=== PATIENT | female | born 1955 | race Caucasian/White ===

== ENCOUNTER → 2016-06-17 | Outpatient (CLI) | payer MEDICARE ==
--- NOTE | 2016-06-23 07:32 | MM ---
Reason for exam: screening (asymptomatic). Last mammogram was performed 7 years and 7 months ago. History: Patient is postmenopausal and history of other cancer. Family history of breast cancer in sister at age 59. Physical Findings: A clinical breast exam by your physician is recommended on an annual basis and results should be correlated with mammographic findings. MG Screening Mammo w CAD Bilateral CC and MLO view(s) were taken. Prior study comparison: November 02, 2008, bilateral digital screening mammogram. July 01, 2005, bilateral screening mammogram w/CAD. There are scattered fibroglandular densities. Finding: There are typically benign round calcifications in both breasts. There is no discrete abnormality. ASSESSMENT: Benign, BI-RAD 2 RECOMMENDATION: Routine screening mammogram of both breasts in 1 year.
== END | disposition home or self-care (01) ==
LOC: MERGE 09:52 → RADMAMWWP 09:52
PROVIDERS: ATTEND Family Medicine
DX: Z12.31 Encounter for screening mammogram for malignant neoplasm of breast (principal)

== ENCOUNTER 2016-07-21 08:09 | Day surgery (SDC) | payer MEDICARE, OTHER ==
[2016-07-16 11:25] VITALS: BMI 24.3
[~2016-07-21 08:09] MED LIST: LACTATED RINGERS 1,000 ML IV SCH; LIDOCAINE 1% 20 ML VIAL (10MG/ML) FOR IV START INTRADERMA PRN
[2016-07-21 08:52] VITALS: TEMP 98.1
[2016-07-21] MEDS ORDERED: LIDOCAINE 1% 20 ML VIAL (10MG/ML) FOR IV START INTRADERMA ONE (08:53)
[2016-07-21] MEDS ORDERED: PROPOFOL 10 MG/ML 20 ML VIAL IV ONE (09:41)
[2016-07-21 10:19] VITALS: RESP 18
--- NOTE | 2016-07-21 10:20 | P.PCN ---
Date of Procedure: 07/21/16 Procedure(s) Performed: Procedure: Total colonoscopy. Preoperative diagnosis: Hemoccult-positive stools. Postoperative diagnosis: Diverticulosis with no evidence of acute diverticulitis , strictures, polyps or cancer. Preparation: HalfLytely prep. Sedation: Was provided by anesthesia. Brief clinical history: The patient is a 60-year-old female who is referred for this evaluation for screening for neoplasia because of finding of Hemoccult positive stools. The patient has no abdominal complaints, overt bleeding or anemia. No family history of colon cancer. This would be her first colonoscopy. Procedure: With the patient on her left lateral decubitus position and after informed consent and adequate sedation, the perianal area was inspected and it did not show any fissures or fistulas. There were no masses felt on digital rectal examination. The Olympus CFQ 160LVideo colonoscope was then inserted in the rectum in the usual fashion and advanced to the cecum. There were multiple diverticular orifices seen scattered in the sigmoid and left side and occasional diverticular orifice seen on the right side with no evidence of acute diverticulitis or strictures. The mucosa appeared healthy. No polyps or tumors were seen. I retroflexed the endoscope in the rectum before the endoscope was withdrawn. The patient tolerated the procedure well. Plan: The patient was reassured. Discussed dietary measures. She will follow- up with you as planned. Consideration can be given for upper GI workup in the future further workup of her Hemoccult positive stools depending on her symptoms , otherwise, in the absence of finding of polyps or family history of colon cancer, I recommended repeat colonoscopy in 10 years.
[2016-07-21 10:38] VITALS: BP 149/67; PULSE 69
== END 2016-07-21 12:22 | disposition home or self-care (01) ==
LOC: ORWHC2ENDO 08:09
DX: K57.30 Diverticulosis of large intestine without perforation or abscess without bleeding (principal); K62.5 Hemorrhage of anus and rectum; F17.200 Nicotine dependence, unspecified, uncomplicated
CPT/HCPCS: 45378; J2704; 99153

== ENCOUNTER → 2018-12-03 | Outpatient (CLI) | payer OTHER ==
--- NOTE | 2018-12-07 10:13 | MM ---
Reason for exam: screening (asymptomatic). Last mammogram was performed 2 years and 6 months ago. History: Patient is postmenopausal and has history of other cancer at age 57. Family history of breast cancer in sister at age 59. Physical Findings: A clinical breast exam by your physician is recommended on an annual basis and results should be correlated with mammographic findings. MG Screening Mammo w CAD Bilateral CC and MLO view(s) were taken. Prior study comparison: June 17, 2016, bilateral MG screening mammo w CAD. November 02, 2008, bilateral digital screening mammogram. The breast tissue is heterogeneously dense. This may lower the sensitivity of mammography. Benign appearing bilateral calcifications. No suspicious abnormality. No significant changes when compared with prior studies. ASSESSMENT: Benign, BI-RAD 2 RECOMMENDATION: Routine screening mammogram of both breasts in 1 year.
== END ==
LOC: RADMAMWWP 07:26
PROVIDERS: ATTEND Family Medicine
DX: Z12.31 Encounter for screening mammogram for malignant neoplasm of breast (principal)
CPT/HCPCS: 77067

== ENCOUNTER 2019-12-19 11:24 | Emergency (ER) | payer MEDICARE ==
[2019-12-19 11:28] VITALS: BP 140/78; PULSE 80; RESP 16; TEMP 98
--- NOTE | 2019-12-19 11:40 | ED ---
General Adult HPI - General Chief complaint: Extremity Injury, Lower Stated complaint: DVT Time Seen by Provider: 12/19/19 11:29 Source: patient, RN notes reviewed Mode of arrival: ambulatory Limitations: no limitations - History of Present Illness Initial comments: 63-year-old female with a past medical history of basal cell skin cancer, GI bleed presents to the emergency department for a chief complaint of left leg pain. Patient states she had some left calf pain and tenderness starting 5 days ago and it is slowly progressing to her distal femur area. States it is somewhat red in the area. Patient states she can feel a cord near her calf. She went to urgent care and their concern for DVT.Patient has no other complaints at this time including shortness of breath, chest pain, abdominal pain, nausea or vomiting, headache, or visual changes. - Related Data Home Medications Medication Instructions Recorded Confirmed Naproxen 375 mg PO BID 12/19/19 12/19/19 Allergies Allergy/AdvReac Type Severity Reaction Status Date / Time No Known Allergies Allergy Verified 12/19/19 12:55 Review of Systems ROS Statement: Those systems with pertinent positive or pertinent negative responses have been documented in the HPI. ROS Other: All systems not noted in ROS Statement are negative. Past Medical History Past Medical History: Cancer, GI Bleed Additional Past Medical History / Comment(s): basal cell skin cancer-face, hayfever, recent fall tore tnedons in lt shoulder limited movement with raising arm above head History of Any Multi-Drug Resistant Organisms: None Reported Past Surgical History: Orthopedic Surgery Additional Past Surgical History / Comment(s): rt shoulder surgery, lasik, ana leg vein stripping Past Anesthesia/Blood Transfusion Reactions: No Reported Reaction Past Psychological History: No Psychological Hx Reported Smoking Status: Current every day smoker Past Alcohol Use History: Occasional - Past Family History Mother Family Medical History: Cancer, Pulmonary Embolus Additional Family Medical History / Comment(s): melanoma with metastasis Brother(s) Family Medical History: Cancer Additional Family Medical History / Comment(s): melanoma Sister(s) Family Medical History: Cancer Additional Family Medical History / Comment(s): breast Father Family Medical History: Cancer Additional Family Medical History / Comment(s): bladder General Exam Limitations: no limitations General appearance: alert, in no apparent distress Head exam: Present: atraumatic, normocephalic, normal inspection Eye exam: Present: normal appearance, PERRL, EOMI. Absent: scleral icterus, conjunctival injection, periorbital swelling ENT exam: Present: normal exam, mucous membranes moist Neck exam: Present: normal inspection, full ROM. Absent: tenderness, meningismus, lymphadenopathy Respiratory exam: Present: normal lung sounds bilaterally. Absent: respiratory distress, wheezes, rales, rhonchi, stridor Cardiovascular Exam: Present: regular rate, normal rhythm, normal heart sounds. Absent: systolic murmur, diastolic murmur, rubs, gallop, clicks GI/Abdominal exam: Present: soft, normal bowel sounds. Absent: distended, tenderness, guarding, rebound, rigid Extremities exam: Present: full ROM (Full range of motion of the left lower extremity.), tenderness (Tenderness along the medial aspect of the left calf area where there is a cord felt consistent with superficial thrombophlebitis.), normal capillary refill (Capillary refill less than 2 seconds, DP pulse was 2+ in the left lower extremity), other (sensation intact LLE). Absent: joint swelling (no appreciable edema of the LLE) Course Vital Signs 12/19/19 11:25 Temperature 98.0 F Pulse Rate 80 Respiratory 16 Rate Blood Pressure 140/78 Medical Decision Making - Medical Decision Making Ultrasound of the left lower extremity shows no evidence of deep venous thrombosis however there is positive superficial thrombophlebitis at greater saphenous vein. Patient will apply warm compresses and take NSAIDs. I did discuss that this is a rather large superficial thrombophlebitis so she should follow up closely with her doctor at sometime this week. She will call tomorrow. She should return here for any worsening symptoms. Disposition Clinical Impression: Superficial thrombophlebitis Disposition: HOME SELF-CARE Condition: Good Instructions (If sedation given, give patient instructions): Superficial Thrombophlebitis (ED) Additional Instructions: Please apply warm compresses and continue to take NSAIDs. Please follow-up with primary care in 1-2 days. Return here to the emergency room if you have any worsening symptoms. Is patient prescribed a controlled substance at d/c from ED?: No Referrals: Estephania Morillo MD [Primary Care Provider] - 1-2 days Andrew Hsu DO [STAFF PHYSICIAN] - 1-2 days Time of Disposition: 12:53
--- NOTE | 2019-12-19 12:28 | US ---
EXAMINATION TYPE: US venous doppler duplex LE LT DATE OF EXAM: 12/19/2019 12:12 PM COMPARISON: NONE CLINICAL HISTORY: pain. Left leg pain, redness,and swelling over GSV above knee to below knee x 4 day s; prior history of right leg thrombophlebitis SIDE PERFORMED: Left TECHNIQUE: The lower extremity deep venous system is examined utilizing real time linear array sonog verónica with graded compression, doppler sonography and color-flow sonography. VESSELS IMAGED: Common Femoral Vein Deep Femoral Vein Greater Saphenous Vein * (GSV) Femoral Vein Popliteal Vein Small Saphenous Vein * Proximal Calf Veins (* superficial vessels) Left Leg: Negative for DVT. Left leg is positive for superficial vein thrombosis at Great Saphenous Vein at patient's area of symptoms as vein is noncompressible, tortuous and no color flow is detecte d for 15cm segment from AK to BK level. IMPRESSION: No evidence for DVT. Positive superficial thrombophlebitis.
== END 2019-12-19 12:54 | disposition home or self-care (01) ==
LOC: EC 11:24
DX: I80.02 Phlebitis and thrombophlebitis of superficial vessels of left lower extremity (principal); F17.200 Nicotine dependence, unspecified, uncomplicated; Z79.1 Long term (current) use of non-steroidal anti-inflammatories (NSAID); Z85.828 Personal history of other malignant neoplasm of skin
CPT/HCPCS: 99283

== ENCOUNTER → 2021-07-09 | Outpatient (CLI) | payer MEDICARE ==
--- NOTE | 2021-07-10 14:09 | MM ---
Reason for exam: screening (asymptomatic). Last mammogram was performed 2 years and 7 months ago. History: Patient is postmenopausal and has history of other cancer at age 57. Family history of breast cancer in sister at age 59. Physical Findings: A clinical breast exam by your physician is recommended on an annual basis and results should be correlated with mammographic findings. MG Screening Mammo w CAD Bilateral CC and MLO view(s) were taken. Prior study comparison: December 03, 2018, bilateral MG screening mammo w CAD. June 17, 2016, bilateral MG screening mammo w CAD. The breast tissue is heterogeneously dense. This may lower the sensitivity of mammography. There are benign appearing round calcifications bilaterally. There is no discrete abnormality. ASSESSMENT: Benign, BI-RAD 2 RECOMMENDATION: Routine screening mammogram of both breasts in 1 year.
== END | disposition home or self-care (01) ==
LOC: RADMAMWWP 10:45
PROVIDERS: ATTEND Family Medicine
DX: Z12.31 Encounter for screening mammogram for malignant neoplasm of breast (principal); Z78.0 Asymptomatic menopausal state; Z80.3 Family history of malignant neoplasm of breast
CPT/HCPCS: 77067

== ENCOUNTER → 2023-02-19 | Outpatient (CLI) | payer MEDICARE ==
--- NOTE | 2023-02-19 19:51 | BD ---
EXAMINATION TYPE: Axial Bone Density DATE OF EXAM: 02/19/2023 CLINICAL HISTORY: 67 years old Female. ICD-10 CODE: Z78.0 ASYMPTOMATIC MENOPAUSAL STA Height: 67.6 Weight: 178 FRAX RISK QUESTIONS: History of Fracture in Adulthood: yes Secondary Osteoporosis: yes 5. Chronic liver disease: hepatic cyst Current Tobacco Use: yes RISK FACTORS HISTORY OF: hx of clavicle fx as an adult, hx of ribs fx as an adult, Postmenopausal woman: yes, at age 48 Hyperparathyroidism: no Adrenal Insufficiency: no MEDICATIONS: Additional Medications: nothing to note here Additional History: nothing to note here EXAM MEASUREMENTS: Bone mineral densitometry was performed using the [employer] System. Bone mineral density as measured about the Lumbar spine is: ----- L1-L4(G/cm2): 1.187 T Score Values are as follows: ----- L1: -0.6 ----- L2: -1.3 ----- L3: 0.5 ----- L4: 1.2 ----- L1-L4: 0.1 Z Score Values are as follows: ----- L1: 0.5 ----- L2: -0.1 ----- L3: 1.6 ----- L4: 2.4 ----- L1-L4: 1.2 Bone mineral density is her first bone density study, baseline. Bone mineral density about the R hip (g/cm2): 0.882 Bone mineral density about the L hip (g/cm2): 0.853 T Score values are as follows: -----R Neck: -1.2 -----L Neck: -1.3 -----R Total: -1.0 -----L Total: -1.2 Z Score values are as follows: -----R Neck: 0.1 -----L Neck: 0.0 -----R Total: 0.0 -----L Total: -0.2 Bone mineral density is a baseline study today, first dexa test. FRAX%s: The graph provided illustrates a 15.1% chance for a major osteoporotic fx and a 2.9% chance f or the hips probability for fx in 10 years time. IMPRESSION: Osteopenia (T Score between -2.5 and -1). There is slightly increased risk of fracture and the patient may be considered for treatment. Re-Screen 2-5 years. NOTE: T-SCORE=SD OF THE YOUNG ADULT MEAN.
--- NOTE | 2023-02-20 09:11 | MM ---
Reason for Exam: Screening (asymptomatic). Last mammogram was performed 1 year(s) and 8 month(s) ago. Patient History: Menarche at age 11. First Full-Term at age 17. Postmenopausal. Other cancer, age 57. Sister had breast cancer, age 59. Risk Values: Shy 5 year model risk: 3.2%. NCI Lifetime model risk: 9.7%. Prior Study Comparison: 06/17/2016 Bilateral Screening Mammogram, [facility]. 12/03/2018 Bilateral Screening Mammogram, [facility]. 07/09/2021 Bilateral Screening Mammogram, [facility]. Tissue Density: The breast tissue is heterogeneously dense. This may lower the sensitivity of mammography. Findings: Analyzed By CAD. There is no suspicious group of microcalcifications or new suspicious mass. Benign-appearing calcifications bilaterally. Overall Assessment: Benign, BI-RAD 2 Management: Screening Mammogram of both breasts in [address] [facility] will attempt to contact patient to return for supplemental views and ultrasound if indicated. Patient should continue monthly self-breast exams. A clinical breast exam by your physician is recommended on an annual basis. This exam should not preclude additional follow-up of suspicious palpable abnormalities. Note on Shy scores and lifetime risk: 1. A Shy score greater than 3% is considered moderate risk. If this is the case, consider specialist referral to assess eligibility for a risk reducing agent. 2. If overall lifetime risk for the development of breast cancer is 20% or higher, the patient may qualify for future screening with alternating mammogram and breast MRI. Electronically signed and approved by: Doni Echeverria DO
== END | disposition home or self-care (01) ==
LOC: RADBDWWP 11:12
PROVIDERS: ATTEND Family Medicine
DX: Z12.31 Encounter for screening mammogram for malignant neoplasm of breast (principal); M85.89 Other specified disorders of bone density and structure, multiple sites; Z78.0 Asymptomatic menopausal state; Z80.3 Family history of malignant neoplasm of breast
CPT/HCPCS: 77063; 77067; 77080

== ENCOUNTER → 2023-07-23 | Outpatient (CLI) | payer OTHER ==
--- NOTE | 2023-07-23 17:18 | XR ---
PROCEDURE: XR shoulder complete RT - 3V DATE AND TIME: 07/23/2023 4:54 PM CLINICAL INDICATION: PHH; S46.011A STRAIN OF MUSC/TEND THE ROTATOR CUFF OF R TECHNIQUE: Department protocol COMPARISON: None FINDINGS: There is no fracture or malalignment. The soft tissues are unremarkable. [id number] osteoarthrosis changes noted at the acromioclavicular joint. IMPRESSION: NO ACUTE PROCESS.
== END | disposition home or self-care (01) ==
LOC: RADXRMAIN 16:44
PROVIDERS: ATTEND Emergency Medicine
DX: S46.011A Strain of muscle(s) and tendon(s) of the rotator cuff of right shoulder, initial encounter (principal); X58.XXXA Exposure to other specified factors, initial encounter

== ENCOUNTER → 2023-07-31 | Outpatient (CLI) | payer OTHER ==
--- NOTE | 2023-08-01 08:13 | MR ---
EXAMINATION TYPE: MR shoulder RT wo con DATE OF EXAM: 07/31/2023 COMPARISON: Right shoulder x-ray 8 days earlier HISTORY: Right shoulder pain and weakness for 8 days TECHNIQUE: Multiplanar, multisequence imaging of the right shoulder is performed without contrast. FINDINGS: Rotator Cuff: Increased signal in infraspinatus tendon and to greater degree in the supraspinatus ten don. There is additional partial tearing in the distal supraspinatus tendon with fluid seen along the bursal and articular surfaces. Subscapularis tendon is intact. Rotator cuff muscle bulk is preserved . Acromioclavicular Joint: Moderate narrowing greatest along the inferior aspect is present. Moderate s uperior capsular hypertrophy. Mild spurring. Glenohumeral Joint: Small to moderate size joint effusion. No significant spurring. Labrum: Increased signal superior labrum consistent with degenerative tearing. Biceps Tendon: The long head of biceps is in normal location within bicipital groove. Bone marrow signal: Subchondral cystic change at the acromioclavicular joint. Other: No additional significant abnormality is appreciated. IMPRESSION: 1. Tendinosis of the infraspinatus tendon. More prominent tendinosis of the supraspinatus tendon with significant partial tearing distally noted. 2. Degenerative tear superior labrum. 3. Fairly moderate degenerative changes are present as detailed above
== END | disposition home or self-care (01) ==
LOC: RADMRIMAIN 13:43
PROVIDERS: ATTEND Emergency Medicine
DX: M19.011 Primary osteoarthritis, right shoulder (principal); M67.813 Other specified disorders of tendon, right shoulder; S46.011D Strain of muscle(s) and tendon(s) of the rotator cuff of right shoulder, subsequent encounter; R53.1 Weakness; X58.XXXD Exposure to other specified factors, subsequent encounter

== ENCOUNTER 2024-04-11 10:51 | Emergency (ER) | payer MEDICARE ==
[2024-04-11 11:11] VITALS: BP 135/74; PULSE 77; RESP 18; TEMP 98.2
--- NOTE | 2024-04-11 11:46 | ED ---
Fall HPI - General Chief Complaint: Fall Stated Complaint: Fall, possible broken ribs Time Seen by Provider: 04/11/24 11:09 Source: patient, RN notes reviewed Mode of arrival: ambulatory Limitations: no limitations - History of Present Illness Initial Comments: 68-year-old female presents emergency department chief complaint of left-sided rib pain, pelvic hip pain. Patient states she was riding her horse when she fell off the right side of the horse but twisted and landed on her left side. She complains of left-sided rib pain, hip and low back pain. Patient denies any head injury no loss conscious. She states this happened yesterday she is able to ambulate she states she has no dizziness she has pain with deep inspiration and certain movements of her hip. Bowel, bladder incontinence retention no saddle anesthesias no lower extremity paresthesias - Related Data Home Medications Medication Instructions Recorded Confirmed Vit C/E/Zn/Coppr/Lutein/Zeaxan 1 cap PO BID 04/11/24 04/11/24 [Preservision Areds 2 Softgel] Previous Rx's Medication Instructions Recorded HYDROcodone/APAP 7.5-325MG [[place] 1 tab PO Q6HR PRN 3 Days #12 tab 04/11/24 7.5-325] Allergies Allergy/AdvReac Type Severity Reaction Status Date / Time No Known Allergies Allergy Verified 04/11/24 12:39 Review of Systems ROS Statement: Those systems with pertinent positive or pertinent negative responses have been documented in the HPI. ROS Other: All systems not noted in ROS Statement are negative. Past Medical History Past Medical History: Cancer, GI Bleed Additional Past Medical History / Comment(s): basal cell skin cancer-face, hayfever, recent fall tore tnedons in lt shoulder limited movement with raising arm above head History of Any Multi-Drug Resistant Organisms: None Reported Past Surgical History: Orthopedic Surgery Additional Past Surgical History / Comment(s): rt shoulder surgery, lasik, ana leg vein stripping Past Anesthesia/Blood Transfusion Reactions: No Reported Reaction Past Psychological History: No Psychological Hx Reported Smoking Status: Current every day smoker Past Alcohol Use History: Occasional Past Drug Use History: None Reported - Past Family History Mother Family Medical History: Cancer, Pulmonary Embolus Additional Family Medical History / Comment(s): melanoma with metastasis Brother(s) Family Medical History: Cancer Additional Family Medical History / Comment(s): melanoma Sister(s) Family Medical History: Cancer Additional Family Medical History / Comment(s): breast Father Family Medical History: Cancer Additional Family Medical History / Comment(s): bladder General Exam Limitations: no limitations General appearance: alert, in no apparent distress Head exam: Present: atraumatic, normocephalic, normal inspection Eye exam: Present: normal appearance, PERRL, EOMI. Absent: scleral icterus, conjunctival injection, periorbital swelling ENT exam: Present: normal exam, normal oropharynx, mucous membranes moist Neck exam: Present: normal inspection, full ROM. Absent: tenderness, meningismus, lymphadenopathy Respiratory exam: Present: normal lung sounds bilaterally, chest wall tenderness. Absent: respiratory distress, wheezes, rales, rhonchi, stridor Cardiovascular Exam: Present: regular rate, normal rhythm, normal heart sounds. Absent: systolic murmur, diastolic murmur, rubs, gallop, clicks GI/Abdominal exam: Present: soft, normal bowel sounds. Absent: distended, tenderness, guarding, rebound, rigid Extremities exam: Present: other (Left hip tenderness, upper extremities unremarkable) Back exam: Present: full ROM, tenderness, paraspinal tenderness, vertebral tenderness Neurological exam: Present: alert, oriented X3, CN II-XII intact, reflexes normal. Absent: motor sensory deficit Skin exam: Present: warm, dry, intact, normal color. Absent: rash Course Vital Signs 04/11/24 11:07 Temperature 98.2 F Pulse Rate 77 Respiratory 18 Rate Blood Pressure 135/74 O2 Sat by Pulse 96 Oximetry Medical Decision Making - Medical Decision Making Was pt. sent in by a medical professional or institution (, PA, CLEAN RICE GRADER AND REEL TENDER, urgent care, hospital, or fdc...) When possible be specific @ -No Did you speak to anyone other than the patient for history (EMS, parent, family, police, friend...)? What history was obtained from this source @ -No Did you review nursing and triage notes (agree or disagree)? Why? @ -I reviewed and agree with nursing and triage notes Were old charts reviewed (outside hosp., previous admission, EMS record, old EKG, old radiological studies, urgent care reports/EKG's, fdc records)? Report findings @ -No old charts were reviewed Differential Diagnosis (chest pain, altered mental status, abdominal pain women, abdominal pain men, vaginal bleeding, weakness, fever, dyspnea, syncope, headache, dizziness, GI bleed, back pain, seizure, CVA, palpatations, mental health, musculoskeletal)? @ -Fall, pneumothorax, rib fracture, hip contusion, hip fracture, lumbar fracture EKG interpreted by me (3pts min.). @ -None X-rays interpreted by me (1pt min.). @ -X-ray lumbar spine shows degenerative changes no acute fracture X-ray left hip with pelvis no acute fracture CT interpreted by me (1pt min.). @ -CT chest showing no evidence of pneumothorax but has left seventh rib fracture U/S interpreted by me (1pt. min.). @ -None done What testing was considered but not performed or refused? (CT, X-rays, U/S, labs)? Why? @ -None What meds were considered but not given or refused? Why? @ -None Did you discuss the management of the patient with other professionals (professionals i.e. , PA, CLEAN RICE GRADER AND REEL TENDER, lab, RT, psych nurse, geriatric social work professor, mva operator, teacher, licensed mortgage loan officer, insurance case manager)? Give summary @ -No Was smoking cessation discussed for >3mins.? @ -No Was critical care preformed (if so, how long)? @ -No Were there social determinants of health that impacted care today? How? (Homelessness, low income, unemployed, alcoholism, drug addiction, transportation, low edu. Level, literacy, decrease access to med. care, care home, rehab)? @ -No Was there de-escalation of care discussed even if they declined (Discuss DNR or withdrawal of care, Hospice)? DNR status @ -No What co-morbidities impacted this encounter? (DM, HTN, Smoking, COPD, CAD, Cancer, CVA, ARF, Chemo, Hep., AIDS, mental health diagnosis, sleep apnea, morbid obesity)? @ -None Was patient admitted / discharged? Hospital course, mention meds given and route, prescriptions, significant lab abnormalities, going to OR and other pertinent info. @ -Discharge patient has left seventh rib fracture possible minimal pulmonary contusion soft tissue contusion patient instructed use incentive spirometer, analgesics and return pressure discussed. Patient had no head injury no other injuries noted negative x-rays of the hip Undiagnosed new problem with uncertain prognosis? @ -No Drug Therapy requiring intensive monitoring for toxicity (Heparin, Nitro, Insulin, Cardizem)? @ -No Were any procedures done? @ -No Diagnosis/symptom? @ -Fall, rib fracture Acute, or Chronic, or Acute on Chronic? @ -Acute Uncomplicated (without systemic symptoms) or Complicated (systemic symptoms)? @ -Uncomplciated Side effects of treatment? @ -No Exacerbation, Progression, or Severe Exacerbation? @ -No Poses a threat to life or bodily function? How? (Chest pain, [place], [place], pneumonia, PE, COPD, DKA, ARF, appy, cholecystitis, CVA, Diverticulitis, Homicidal, Suicidal, threat to staff... and all critical care pts) @ -No Disposition Clinical Impression: Fall, Left rib fracture, Contusion, hip Disposition: HOME SELF-CARE Condition: Stable Instructions (If sedation given, give patient instructions): Rib Fracture (ED) Additional Instructions: Please return to the Emergency Department if symptoms worsen or any other concerns. Prescriptions: HYDROcodone/APAP 7.5-325MG [[place] 7.5-325] 1 tab PO Q6HR PRN 3 Days #12 tab PRN Reason: pain Is patient prescribed a controlled substance at d/c from ED?: Yes When asked, does pt state using other controlled substances?: No If prescribed controlled substance>3 days was MAPS reviewed?: Prescribed <3 Days If opioid is for acute pain is fill amount 7 days or less?: Yes If Rx opioid, was Start Talking consent form obtained?: Yes Referrals: Estephania Morillo MD [Primary Care Provider] - 1-2 days Time of Disposition: 13:02
--- NOTE | 2024-04-11 12:40 | CT ---
EXAMINATION TYPE: CT chest wo con CT DLP: 390.1 mGycm, Automated exposure control for dose reduction was used. DATE OF EXAM: 04/11/2024 12:12 PM COMPARISON: No direct comparisons. CLINICAL INDICATION:Female, 68 years old with history of pain, fall from horse; PHH, left side rib pa in after fall from horse x1 day ago TECHNIQUE: Multiple axial images were obtained through the chest without IV contrast. Lack of IV or o ral contrast limits evaluation of solid and hollow organ viscera. . Coronal and sagittal reformats re viewed. FINDINGS: LUNGS/ PLEURA: No pleural effusion or pneumothorax. Trace bilateral apical paraseptal emphysematous c hange. Patchy small consolidation within the lingula and right lung base. Linear atelectasis within t he bilateral lower lobes. AIRWAY: Patent and unremarkable.. HEART: Size within normal limits. No pericardial effusion. MEDIASTINUM: No gross evidence of adenopathy. VASCULATURE: No aortic aneurysm. MUSCULOSKELETAL: Acute nondisplaced left lateral seventh rib fracture. (Series 205, image 38). SOFT TISSUES/LYMPH NODES: Unremarkable. LOWER NECK: No significant findings. UPPER ABDOMEN: Few scattered hepatic cysts with largest within the right hepatic dome measuring 3.5 x 2.9 cm. Prominent bilateral extrarenal pelvises with left greater than right. Trace left flank soft tissue contusion. IMPRESSION: 1. Acute nondisplaced left lateral seventh rib fracture. No pneumothorax or pleural effusion. 2. Small regions of consolidation within the lingula and right lung base which may represent contusio ns and/or atelectasis. 3. Trace left flank soft tissue contusion. [facility], , 04/11/2024 12:37 PM
--- NOTE | 2024-04-11 12:42 | XR ---
EXAMINATION TYPE: XR lumbar spine 3V, XR Hip 2 views LT and AP Pelvis DATE OF EXAM: 04/11/2024 Comparison: None Clinical History: 68-year-old female pain, fall from horse Findings: Lumbar spine: 5 lumbar type vertebral bodies. Hypertrophic facet arthropathy mid to lower lumbar spine. Vertebral b esequiel heights are preserved. Trace grade 1 anterolisthesis L3-L4. Remaining alignment is maintained. Pelvis and left hip: SI joints appear symmetric and intact as does the pubic symphysis. There is udpy-wi-hubbelit degenera tive change of the hips with mild superolateral joint space narrowing and marginal spurring. No acute fracture, subluxation, or dislocation. Impression: 1. Lumbar spine: Hypertrophic facet arthropathy mid to lower lumbar spine. Degenerative grade 1 anter olisthesis of L3-L4. No vertebral compression collapse. 2. Pelvis and left hip: Mild to moderate bilateral hip OA. No acute osseous abnormality seen. [facility], Workstation: 3, 04/11/2024 12:40 PM
== END 2024-04-11 13:23 | disposition home or self-care (01) ==
LOC: EC 10:51
CPT/HCPCS: 71250; 72100; 73502; 99283

== ENCOUNTER → 2024-05-02 | Outpatient (CLI) | payer MEDICARE ==
--- NOTE | 2024-05-02 17:53 | XR ---
EXAMINATION TYPE: XR chest 2V, XR ribs LT DATE OF EXAM: 05/02/2024 CLINICAL HISTORY: S22.32XS, M95.4 TECHNIQUE: Frontal and lateral views of the chest are obtained. COMPARISON: None FINDINGS: There is no focal air space opacity, pleural effusion, or pneumothorax seen. The cardiac silhouette size is within normal limits. The osseous structures are intact. IMPRESSION: No acute cardiopulmonary process. EXAMINATION TYPE: XR chest 2V, XR ribs LT DATE OF EXAM: 05/02/2024 CLINICAL HISTORY: Pain, Fall Four views of the ribs fail demonstrate evidence for displaced rib fracture or secondary sign of rib fracture. Visualized lungs are clear. No evidence for pneumothorax. IMPRESSION: 1. No displaced rib fractures seen. ICD 10 NO FRACTURE, INITIAL EVALUATION [facility], , 05/02/2024 5:51 PM
== END | disposition home or self-care (01) ==
LOC: RADXRMAIN 17:22
PROVIDERS: ATTEND Family Medicine
DX: S22.32XS Fracture of one rib, left side, sequela (principal); M95.4 Acquired deformity of chest and rib
CPT/HCPCS: 71046

== ENCOUNTER 2024-09-15 16:17 | Emergency (ER) | payer MEDICARE ==
[2024-09-15 16:20] VITALS: RESP 20
[2024-09-15] MEDS: LIDOCAINE 1% INJ 10MG/ML (20 ML MDV) SQ ONE (16:41)
--- NOTE | 2024-09-15 16:41 | ED ---
Trauma HPI - General Chief Complaint: Extremity Injury, Upper Stated Complaint: L hand injury Time Seen by Provider: 09/15/24 16:28 Source: patient, RN notes reviewed Mode of arrival: ambulatory Limitations: no limitations - History of Present Illness Initial Comments: This is a 68-year-old female presenting with left pinky injury occurring at 1430 today. Patient states she was walking her dog when at some point she had her left pinky smashed in a log splitter before subsequently having to walk an hour back home before coming to ER. Patient denies other injuries and is unsure of tetanus vaccination status. Denies use of blood thinners. MD Complaint: injury Onset/Timin -: hour(s) Time: 14:30 Loss of Consciousness: no Location - Extremities: Left: Hand Severity scale (1-10): 10 Consistency: constant Context: Machine or Tool Related Injury Associated Symptoms: denies other symptoms - Related Data Home Medications Medication Instructions Recorded Confirmed Vit C/E/Zn/Coppr/Lutein/Zeaxan 1 cap PO BID 04/11/24 04/11/24 [Preservision Areds 2 Softgel] Previous Rx's Medication Instructions Recorded HYDROcodone/APAP 7.5-325MG [[place] 1 tab PO Q6HR PRN 3 Days #12 tab 04/11/24 7.5-325] Cephalexin [Keflex] 500 mg PO Q6HR 1 Days #20 cap 09/15/24 Ibuprofen [Motrin] 800 mg PO Q8H PRN #30 tab 09/15/24 Allergies Allergy/AdvReac Type Severity Reaction Status Date / Time No Known Allergies Allergy Verified 09/15/24 16:20 Review of Systems ROS Statement: Those systems with pertinent positive or pertinent negative responses have been documented in the HPI. ROS Other: All systems not noted in ROS Statement are negative. Past Medical History Past Medical History: Cancer, GI Bleed Additional Past Medical History / Comment(s): basal cell skin cancer-face, hayfever, recent fall tore tnedons in lt shoulder limited movement with raising arm above head History of Any Multi-Drug Resistant Organisms: None Reported Past Surgical History: Orthopedic Surgery Additional Past Surgical History / Comment(s): rt shoulder surgery, lasik, ana leg vein stripping, L knee miniscus repair Past Anesthesia/Blood Transfusion Reactions: No Reported Reaction Past Psychological History: No Psychological Hx Reported Smoking Status: Current every day smoker Past Alcohol Use History: Occasional Past Drug Use History: None Reported - Past Family History Mother Family Medical History: Cancer, Pulmonary Embolus Additional Family Medical History / Comment(s): melanoma with metastasis Brother(s) Family Medical History: Cancer Additional Family Medical History / Comment(s): melanoma Sister(s) Family Medical History: Cancer Additional Family Medical History / Comment(s): breast Father Family Medical History: Cancer Additional Family Medical History / Comment(s): bladder General Exam Limitations: no limitations General appearance: alert, in no apparent distress Head exam: Present: atraumatic, normocephalic, normal inspection Eye exam: Present: normal appearance, PERRL, EOMI. Absent: scleral icterus, conjunctival injection, periorbital swelling ENT exam: Present: normal exam, mucous membranes moist Neck exam: Present: normal inspection. Absent: tenderness, meningismus, lymphadenopathy Respiratory exam: Present: normal lung sounds bilaterally. Absent: respiratory distress, wheezes, rales, rhonchi, stridor Cardiovascular Exam: Present: regular rate, normal rhythm, normal heart sounds. Absent: systolic murmur, diastolic murmur, rubs, gallop, clicks GI/Abdominal exam: Present: soft, normal bowel sounds. Absent: distended, tenderness, guarding, rebound, rigid Extremities exam: Present: tenderness, other (Soft tissue amputation of distal phalanx radial aspect of left fifth digit. Ulnar aspect remains partially intact. Distal phalanx remains intact. Neurovascular intact with capillary bleeding and no obvious foreign body). Absent: pedal edema, joint swelling, calf tenderness Back exam: Present: normal inspection Neurological exam: Present: alert, oriented X3, CN II-XII intact Psychiatric exam: Present: normal affect, normal mood Skin exam: Present: warm, dry, intact, normal color. Absent: rash Course Vital Signs 09/15/24 09/15/24 16:17 17:39 Temperature 99.1 F Pulse Rate 102 H 71 Respiratory 20 20 Rate Blood Pressure 177/94 136/77 O2 Sat by Pulse 97 97 Oximetry Medical Decision Making - Medical Decision Making Was pt. sent in by a medical professional or institution (, PA, FARM MARKETER, urgent care, hospital, or skilled nursing...) When possible be specific @ -[No] Did you speak to anyone other than the patient for history (EMS, parent, family, police, friend...)? What history was obtained from this source @ -[No] Did you review nursing and triage notes (agree or disagree)? Why? @ -[I reviewed and agree with nursing and triage notes] Were old charts reviewed (outside hosp., previous admission, EMS record, old EKG, old radiological studies, urgent care reports/EKG's, skilled nursing records)? Report findings @ -[No old charts were reviewed] Differential Diagnosis (chest pain, altered mental status, abdominal pain women, abdominal pain men, vaginal bleeding, weakness, fever, dyspnea, syncope, headache, dizziness, GI bleed, back pain, seizure, CVA, palpatations, mental health, musculoskeletal)? @ -Differential Musculoskeletal Muscular strain, contusion, ligament sprain, fracture, arthritis, septic arthritis, bursitis, cellulitis, muscle spasm, nerve compression, DVT, arterial occlusion, herpes zoster, electrolyte abnormality, tumor.... This is not meant to be in all inclusive list EKG interpreted by me (3pts min.). @ -Not done X-rays interpreted by me (1pt min.). @ -[None done] CT interpreted by me (1pt min.). @ -[None done] U/S interpreted by me (1pt. min.). @ -[None done] What testing was considered but not performed or refused? (CT, X-rays, U/S, labs)? Why? @ -[None] What meds were considered but not given or refused? Why? @ -[None] Did you discuss the management of the patient with other professionals (professionals i.e. , PA, FARM MARKETER, lab, RT, psych nurse, manager social work, baseball pitcher, teacher, tactical debriefer officer, pillowcase folder)? Give summary @ -[No] Was smoking cessation discussed for >3mins.? @ -[No] Was critical care preformed (if so, how long)? @ -[No] Were there social determinants of health that impacted care today? How? (Homelessness, low income, unemployed, alcoholism, drug addiction, transportation, low edu. Level, literacy, decrease access to med. care, correction, rehab)? @ -[No] Was there de-escalation of care discussed even if they declined (Discuss DNR or withdrawal of care, Hospice)? DNR status @ -[No] What co-morbidities impacted this encounter? (DM, HTN, Smoking, COPD, CAD, Cancer, CVA, ARF, Chemo, Hep., AIDS, mental health diagnosis, sleep apnea, mor bid obesity)? @ -[None] Was patient admitted / discharged? Hospital course, mention meds given and route, prescriptions, significant lab abnormalities, going to OR and other pertinent info. @ -[hospital course] Undiagnosed new problem with uncertain prognosis? @ -[No] Drug Therapy requiring intensive monitoring for toxicity (Heparin, Nitro, Insulin, Cardizem)? @ -[No] Were any procedures done? @ -[No] Diagnosis/symptom? @ -Complete avulsion of distal left fifth digit Acute, or Chronic, or Acute on Chronic? @ -Acute Uncomplicated (without systemic symptoms) or Complicated (systemic symptoms)? @ -Uncomplicated Side effects of treatment? @ -[No] Exacerbation, Progression, or Severe Exacerbation? @ -[No] Poses a threat to life or bodily function? How? (Chest pain, [place], [place], pneumonia, PE, COPD, DKA, ARF, appy, cholecystitis, CVA, Diverticulitis, Homicidal, Suicidal, threat to staff... and all critical care pts) @ -[No] Disposition Clinical Impression: Avulsion of finger tip Disposition: HOME SELF-CARE Condition: Good Instructions (If sedation given, give patient instructions): Acute Wound Care (ED) Additional Instructions: Follow-up with hand surgeon tomorrow for ongoing care of injury Prescriptions: Cephalexin [Keflex] 500 mg PO Q6HR 1 Days #20 cap Ibuprofen [Motrin] 800 mg PO Q8H PRN #30 tab PRN Reason: Pain Is patient prescribed a controlled substance at d/c from ED?: No Referrals: Aristides Amaral MD [STAFF PHYSICIAN] - 1-2 days Estephania Morillo MD [Primary Care Provider] - 1-2 days Time of Disposition: 17:40
[2024-09-15] MEDS: CEPHALEXIN 500 MG CAP PO STA (16:42)
[2024-09-15] MEDS: DIPH,PERTUS(ACELL)TETVAC-LF 0.5 ML VIAL IM ONE (16:43)
[2024-09-15] MEDS: HYDROmorphone 1 MG/ML 1 ML SYRINGE IM STA (16:53)
[2024-09-15] MEDS: KETOROLAC 15 MG/ML 1 ML VIAL IM STA (16:57)
--- NOTE | 2024-09-15 16:57 | XR ---
EXAMINATION TYPE: XR finger LT DATE OF EXAM: 09/15/2024 4:53 PM INDICATION: Patient age:Female; 68 years old; Reason for study: Pinky versus log splitter; PHH. pain COMPARISON: None TECHNIQUE: Frontal, lateral and oblique views of the left hand were obtained. FINDINGS: No acute fracture or dislocation. There is soft tissue defect involving the distal aspect o f the fifth digit consistent with a laceration. This is along the palmar aspect. Diffuse soft tissue swelling of the fifth digit. No radiopaque foreign body. Osteoarthritic changes of the PIP and DIP vamsi ints of the fifth digit. IMPRESSION: 1. No acute fracture or dislocation. 2. Soft tissue laceration involving the distal aspect of the fifth digit with soft tissue edema. No r adiopaque foreign body. 3. Osteoarthritic changes of the DIP and PIP joints of the fifth digit. [facility], , 09/15/2024 4:55 PM
[2024-09-15] MEDS: ceFAZolin 1,000 MG VIAL (IM USE) IM STA (18:16)
[2024-09-15] MEDS: IBUPROFEN 800 MG TAB PO STA (18:17)
[2024-09-15] MEDS: ACET/COD 300 MG/30 MG STARTER PACK 6 TAB BTL PO STA (18:17)
[2024-09-15] MEDS: CEPHALEXIN 500MG STARTER PACK 4 CAP BTL PO STA (18:23)
[2024-09-15 18:31] VITALS: BP 130/68; PULSE 99; TEMP 98.6
== END 2024-09-15 18:31 | disposition home or self-care (01) ==
LOC: EC 16:17
DX: S68.617A Complete traumatic transphalangeal amputation of left little finger, initial encounter (principal); F17.200 Nicotine dependence, unspecified, uncomplicated; Z23 Encounter for immunization; W23.1XXA Caught, crushed, jammed, or pinched between stationary objects, initial encounter; Y93.K1 Activity, walking an animal
CPT/HCPCS: 73140; 90715; 99283; 90471; 96372 ×3; J0690; J2003; J1171; J1885